=== PATIENT | female | born 1960 | race Caucasian/White ===

== ENCOUNTER 2017-05-25 09:44 | Emergency (ER) | payer OTHER ==
[~2017-05-25] VITALS: Ht 157.5 cm; Wt 72.0 kg
[2017-05-25 09:46] VITALS: BP 195/93; PULSE 100; RESP 16; TEMP 98.5; O2SAT 98
--- NOTE | 2017-05-25 10:07 | PD ---
HPI Chief Complaint: Eye Problems/Injury Time Seen by Provider: 10:00 Travel History International Travel<30 days: No Contact w/Intl Traveler<30days: No Traveled to known affect area: No History of Present Illness HPI This is a 57-year-old female who presents to the emergency department with visual changes in her right eye that been going on since . Patient reports that she sees something that looks like hand gel in the center of her right vision associated with some black spots in the center of her right vision and some floaters on the outside of her vision. The symptoms go away when she closes her right eye. She has no pain in the eye. The symptoms of been constant and worsening. FOR[facility]LY [facility] Past Medical History Medical History: Denies Significant Hx Social History Tobacco Use: No Allergies-Medications (Allergen,Severity, Reaction): Coded Allergies: erythromycin base (Verified Allergy, Severe, Rash, 05/25/17) Penicillins (Verified Allergy, Unknown, 05/25/17) Review of Systems Except as stated in HPI: all other systems reviewed are Neg Physical Exam Narrative GENERAL:Well appearing, no acute distress SKIN: Focused skin assessment warm and dry. HEAD: Atraumatic. Normocephalic. EYES: 20/20 vision in both eyes. Pupils are equal and reactive with no injection of the right or left eyes. ENT: Moist mucous membranes NECK: Trachea midline. CARDIOVASCULAR: Regular rate and rhythm. No murmur appreciated. RESPIRATORY: Clear to auscultation. Breath sounds equal bilaterally. GASTROINTESTINAL: Abdomen soft, non-tender, nondistended. MUSCULOSKELETAL: No obvious deformities. NEUROLOGICAL: Awake and alert. No obvious cranial nerve deficits. Moving all extremities. PSYCHIATRIC: Appropriate mood and affect; insight and judgment normal. Data Data Last Documented VS Vital Signs Date Time Temp Pulse Resp B/P (MAP) Pulse Ox O2 Delivery O2 Flow Rate FiO2 05/25/17 09:46 98.5 100 16 195/93 [phone] MDM Medical Decision Making Medical Screen Exam Complete: Yes Emergency Medical Condition: Yes Interpretation(s) Afebrile, tachycardic, hypertensive Differential Diagnosis Retinal detachment, vitreous hemorrhage, optic neuritis, retinopathy Narrative Course This is a 57-year-old female who presents to the emergency department with an abnormal area of her vision in the right eye. She is 20/20 in both eyes. She has no pain and she is normal gross exam. I spoke to rubber goods inspector Dr. Afshan Barth who would like the patient to call the office at 8 AM tomorrow morning and be seen first thing. Patient will be discharged home. Diagnosis Primary Impression: Abnormal vision Referrals: Afshan Barth MD call for appointment call at 8 AM tomorrow morning to be seen Additional Instructions: It is very important that you see Dr. Barth in the office tomorrow morning without fail. Med/Other Pt SpecificInfo: No Change to Meds Disposition: 01 DISCHARGE HOME Condition: Stable Coleen Vogel MD May 25, 2017 10:07
== END 2017-05-25 10:40 | disposition home or self-care (01) ==
LOC: NEPC 09:44
DX: H53.9 Unspecified visual disturbance (principal); Z88.0 Allergy status to penicillin; Z88.1 Allergy status to other antibiotic agents
CPT/HCPCS: 99281